=== PATIENT | male | born 2000 | race Hispanic/Latino ===

== ENCOUNTER 2021-05-01 14:31 | Emergency (ER) | payer OTHER ==
[~2021-05-01] VITALS: Ht 182.9 cm; Wt 112.9 kg
[2021-05-01] MEDS ORDERED: NAPROXEN 250 MG TAB PO ONE (16:55)
[2021-05-01 17:40] VITALS: BP 141/88
== END 2021-05-01 17:42 | disposition home or self-care (01) ==
LOC: M ED 14:31
DX: J06.9 Acute upper respiratory infection, unspecified (principal)